=== PATIENT | male | born 1950 | race Caucasian/White ===

== ENCOUNTER 2016-10-07 09:49 | Outpatient (CLI) | payer OTHER ==
[~2016-10-07 09:49] MED LIST: ATENOLOL25 MG PO; CLONAZEPAM1 MG PO; COQ10 PO; GLUCOSAMINE MSM COMP; OXYCONTIN C/R20 MG PO; PERCOCET1 TA4 PO; PIROXICAM20 MG; SIMVASTATIN40 MG; TRAZODONE HCL50 MG PO
--- NOTE | 2016-10-07 11:07 | DIAGNOSTIC IMAGING REPORT ---
PROCEDURE: US KIDNEY/RENAL COMPLETE INDICATION: RENAL CYST TECHNIQUE: Aguiar scale and color Doppler sonographic imaging of the kidneys and urinary bladder was obtained. Intrarenal resistive indices were calculated when appropriate. COMPARISON: 03/11/2011 FINDINGS: The right kidney measures 10.5 x 4.8 x 3.6 cm. Normal cortical thickness and echogenicity. There is an exophytic cortical cyst measuring 5.3 x 5.2 x 4.9 cm arising from the mid portion of the right kidney. There is a single thin septation seen within it. No significant internal solid component or vascularity. There is another 1 cm round exophytic cyst arising from the right lateral renal cortex. No suspicious solid mass. No shadowing calculus or hydronephrosis. Normal color Doppler blood flow throughout the kidney. Resistive indices in the intrarenal parenchymal arteries range from 0.54-0.63. The left kidney measures 11.2 x 5.3 x 3.4 cm. Normal cortical thickness and echogenicity. No hydronephrosis, cyst, solid mass, or shadowing calculus. Normal color Doppler blood flow throughout the kidney. Resistive indices in the intrarenal parenchymal arteries range from 0.58-0.71. The filled urinary bladder has a volume of 69 ml and a post void residual of 1 ml. The urinary bladder wall is uniform in thickness without suspicious thickening or irregularity. No bladder debris, calcification or mass. Bilateral ureteral jets were visible indicating ureteral patency. The visible portion the prostate gland measures 3.5 x 3.5 x 2.8 cm and demonstrates a lobular ovoid hyperechoic area across the base. IMPRESSION: 1. 5.3 cm minimally complex right renal cyst with a thin septation, no vascularized solid component. This has minimally enlarged since the prior study. 2. Normal left kidney. 3. Grossly normal partially filled urinary bladder. 4. The prostate gland has decreased in size since the prior study but developed an echogenic focus across the base. (The patient has a known history of prostate cancer).
== END 2016-10-07 23:00 ==
LOC: US SRH 09:49
DX: N28.1 Cyst of kidney, acquired (principal); Z85.46 Personal history of malignant neoplasm of prostate